=== PATIENT | male | born 1940 | race Two or more races ===

== ENCOUNTER 2018-02-22 10:27 | Emergency (ER) | payer OTHER ==
[~2018-02-22] VITALS: Ht 170.2 cm; Wt 72.6 kg
[~2018-02-22 10:27] MED LIST: CARDURA1 MG PO; LASIX20 MG PO
[2018-02-22] MEDS ORDERED: GLIPIZIDE5 MG (10:54)
[2018-02-22] MEDS ORDERED: ASPIRIN81 MG (10:54)
[2018-02-22] MEDS ORDERED: HYDROCHLOROTHIA25 MG (10:55)
[2018-02-22] MEDS ORDERED: FINASTERIDE5 MG (10:55)
[2018-02-22] MEDS ORDERED: CARTIA XT240 MG (10:55)
[2018-02-22] MEDS ORDERED: GEMFIBROZIL600 MG (10:55)
[2018-02-22] MEDS ORDERED: COZAAR100 MG (10:55)
== END 2018-02-22 14:24 | disposition home or self-care (01) ==
LOC: ER 10:27
DX: R13.19 Other dysphagia (principal); M46.82 Other specified inflammatory spondylopathies, cervical region; I10 Essential (primary) hypertension

== ENCOUNTER 2018-03-22 07:44 | Outpatient (CLI) | payer OTHER ==
[~2018-03-22 07:44] MED LIST changes: +ASPIRIN81 MG; +CARTIA XT240 MG; +COZAAR100 MG; +FINASTERIDE5 MG; +GEMFIBROZIL600 MG; +GLIPIZIDE5 MG; +HYDROCHLOROTHIA25 MG
== END 2018-03-22 13:36 | disposition home or self-care (01) ==
LOC: TOM 07:44
DX: R13.19 Other dysphagia (principal)
CPT/HCPCS: 70492; 74230; Q9965

== ENCOUNTER 2018-09-21 03:54 | Emergency (ER) | payer OTHER ==
[~2018-09-21] VITALS: Ht 172.7 cm; Wt 68.0 kg
[2018-09-21] MEDS ORDERED: STIOLTO RESPIMAT4 GM (04:17)
[2018-09-21] MEDS ORDERED: TAMS0.4C (04:18)
[2018-09-21] MEDS ORDERED: MECLIZINE HCL25 MG PO ×2 (08:13→08:15)
[2018-09-21] MEDS ORDERED: CEFUROXIME500 MG (08:13)
[2018-09-21] MEDS ORDERED: CEFUROXIME500 MG PO ×2 (08:14→08:15)
== END 2018-09-21 08:20 ==
LOC: ER 03:54
DX: H81.312 Aural vertigo, left ear (principal)

== ENCOUNTER 2018-10-03 17:51 | Emergency (ER) | payer OTHER ==
[~2018-10-03] VITALS: Ht 172.7 cm; Wt 68.0 kg
[~2018-10-03 17:51] MED LIST changes: +CEFUROXIME500 MG; +CEFUROXIME500 MG PO; +MECLIZINE HCL25 MG PO; +STIOLTO RESPIMAT4 GM; +TAMS0.4C
[2018-10-03] MEDS ORDERED: CELEBREX100 MG PO (21:56)
== END 2018-10-03 21:52 | disposition home or self-care (01) ==
LOC: ER 17:51
DX: S60.211A Contusion of right wrist, initial encounter (principal); W22.8XXA Striking against or struck by other objects, initial encounter; Z99.81 Dependence on supplemental oxygen; Y93.89 Activity, other specified; Y92.018 Other place in single-family (private) house as the place of occurrence of the external cause; Y99.8 Other external cause status

== ENCOUNTER 2018-10-07 17:31 | Emergency (ER) | payer OTHER ==
[~2018-10-07] VITALS: Ht 172.7 cm; Wt 70.3 kg
[~2018-10-07 17:31] MED LIST changes: +CELEBREX100 MG PO
== END 2018-10-07 23:30 | disposition home or self-care (01) ==
LOC: ER 17:31
DX: J32.8 Other chronic sinusitis (principal)

== ENCOUNTER 2019-06-14 18:12 | Emergency (ER) | payer OTHER ==
[~2019-06-14] VITALS: Ht 172.7 cm; Wt 66.2 kg
== END 2019-06-14 23:57 | disposition home or self-care (01) ==
LOC: ER 18:12
DX: T17.828A Food in other parts of respiratory tract causing other injury, initial encounter (principal); R13.19 Other dysphagia; X58.XXXA Exposure to other specified factors, initial encounter; Y93.89 Activity, other specified; Y92.89 Other specified places as the place of occurrence of the external cause; Y99.8 Other external cause status

== ENCOUNTER 2019-09-16 13:02 | Outpatient (CLI) | payer OTHER | END 2019-09-16 13:15 | disposition home or self-care (01) | LOC: MRI 13:02 | DX: R41.3 Other amnesia (principal) | CPT/HCPCS: 70551 ==